=== PATIENT | male | born 1990 | race Caucasian/White ===

== ENCOUNTER 2022-01-25 19:07 | Emergency (ER) | payer BC ==
[2022-01-25 20:55] VITALS: BP 127/85; PULSE 81; RESP 18; TEMP 98
--- NOTE | 2022-01-25 21:37 | US ---
EXAMINATION TYPE: US venous doppler duplex LE RT DATE OF EXAM: 01/25/2022 8:57 PM COMPARISON: NONE CLINICAL HISTORY: right ankle pain. history of DVT. Hx of DVT right lower extremity May 2021; pat ient denies being on current thinners. Patient has right ankle pain/swelling. SIDE PERFORMED: Right TECHNIQUE: The lower extremity deep venous system is examined utilizing real time linear array sonog oliver with graded compression, doppler sonography and color-flow sonography. VESSELS IMAGED: Common Femoral Vein Deep Femoral Vein Greater Saphenous Vein * Femoral Vein Popliteal Vein Small Saphenous Vein * Proximal Calf Veins (* superficial vessels) PTV Right Leg: Negative for DVT IMPRESSION: No evidence of deep vein thrombosis in the right leg.
--- NOTE | 2022-01-25 23:05 | ED ---
Extremity Problem HPI - General Chief complaint: Extremity Problem,Nontraumatic Stated complaint: Rt Ankle Pain,Poss.DVT, PCP sent pt in Time Seen by Provider: 01/25/22 22:52 Source: patient, RN notes reviewed Mode of arrival: ambulatory Limitations: no limitations - History of Present Illness Initial comments: This is a pleasant 31-year-old male who presents emergency department complaining of swelling to his right ankle. He states he's had increased swelling and increased pain with movement and ambulation going on for several weeks. Patient denying any injury. No increased activity. Patient denies any distal paresthesias. No proximal pain. Patient had a trimalleolar fracture which required surgery out of [facility] at the end of last year. Patient subsequently developed a blood clot and now has noticed swelling around the ankle again. There is been no fever or chills. No erythema. No trauma. Patient has Doppler done in triage which was negative for DVT. No headache, no fever or chills, no changes in vision or hearing, no sore throat or difficulty with speech, no neck pain, no chest pain or shortness of breath, no abdominal pain, no nausea or vomiting, no changes in urination or bowel movements, no numbness or tingling, no skin rashes or lesions. - Related Data Previous Rx's Medication Instructions Recorded Naproxen [Naprosyn] 500 mg PO BID PRN #24 tablet 01/25/22 Allergies Allergy/AdvReac Type Severity Reaction Status Date / Time No Known Allergies Allergy Verified 01/25/22 20:55 Review of Systems ROS Statement: Those systems with pertinent positive or pertinent negative responses have been documented in the HPI. ROS Other: All systems not noted in ROS Statement are negative. Past Medical History Past Medical History: No Reported History, Deep Vein Thrombosis (DVT) Additional Past Medical History / Comment(s): Right ankle trimalleolar fracture History of Any Multi-Drug Resistant Organisms: None Reported Past Surgical History: Orthopedic Surgery Additional Past Surgical History / Comment(s): right leg surgery from injury, left ankle surgery Past Psychological History: No Psychological Hx Reported Smoking Status: Never smoker Past Alcohol Use History: None Reported Past Drug Use History: None Reported General Exam - General Exam Comments Initial Comments: no distress. Vital signs stable, patient afebrile Limitations: no limitations General appearance: alert, in no apparent distress Head exam: Present: atraumatic, normocephalic, normal inspection Eye exam: Present: normal appearance, PERRL, EOMI. Absent: scleral icterus, conjunctival injection, periorbital swelling ENT exam: Present: normal exam, mucous membranes moist Neck exam: Present: normal inspection, full ROM. Absent: tenderness, meningismus, lymphadenopathy Respiratory exam: Present: normal lung sounds bilaterally. Absent: respiratory distress, wheezes, rales, rhonchi, stridor Cardiovascular Exam: Present: regular rate, normal rhythm, normal heart sounds. Absent: systolic murmur, diastolic murmur, rubs, gallop, clicks GI/Abdominal exam: Present: soft. Absent: tenderness, rigid Extremities exam: Present: full ROM, normal capillary refill. Absent: tenderne ss, pedal edema, calf tenderness Right Knee exam: Present: normal inspection, full ROM. Absent: tenderness, swelling, abrasion, laceration, ecchymosis, deformity, crepitus, dislocation, erythema, effusion Lower Leg exam: Present: normal inspection. Absent: tenderness, swelling, abrasion, laceration, ecchymosis, deformity, crepitus, dislocation, erythema, palpable cord, Homans' sign Ankle exam: Present: full ROM, tenderness (Minimal), swelling. Absent: normal inspection, abrasion, laceration, ecchymosis, deformity, erythema Foot/Toe exam: Present: normal inspection, full ROM. Absent: tenderness, swelling, abrasion, laceration, ecchymosis, crepitus, dislocation, erythema, amputation, calcaneal tenderness Neurovascular tendon exam: Present: no vascular compromise. Absent: pulse deficit, abnormal cap refill, motor deficit, sensory deficit, tendon deficit, e xtremity cold to touch, pallor, abnormal 2-point discrimination, decreased fine/light touch, foot drop, peroneal nerve deficit Gait: antalgic (Minimal antalgia) Back exam: Present: normal inspection Neurological exam: Present: alert, oriented X3, CN II-XII intact Psychiatric exam: Present: normal affect, normal mood Skin exam: Present: warm, dry, intact, normal color. Absent: rash Course Vital Signs 01/25/22 20:51 Temperature 98 F Pulse Rate 81 Respiratory 18 Rate Blood Pressure 127/85 O2 Sat by Pulse 100 Oximetry Medical Decision Making - Medical Decision Making Patient presents with some chronic pain to his right ankle with some swelling. No evidence of infectious process. No calor. No erythema. Negative Homans sig n. Negative venous Doppler. We'll have the patient follow-up with his regular physician. Pedal pulses were 2+ out of 4. No evidence of infectious or vascular insult. Distal sensation intact. Patient was told to return to the ER for any signs or symptoms worsen. Told to return immediately if any other problems arise. All questions answered. Treatment plan discussed. Patient in agreement Every effort has been made to ensure accuracy of this dictation. However, due to the limitations of electronic medical records and dictation devices, errors in charting still occur. [employer] Dr. Rivers - Radiology Data Radiology results: report reviewed, image reviewed Disposition Clinical Impression: Swelling of right ankle joint, Chronic pain of right ankle Disposition: HOME SELF-CARE Condition: Good Instructions (If sedation given, give patient instructions): Arthralgia (ED) Additional Instructions: Take the anti-inflammatory medication as directed. Elevate your leg whenever possible. Follow-up with the orthopedic physician as soon as possible as discussed. If the swelling is still present after one week, have the venous Doppler reach repeated. Return to the ER immediately if any symptoms worsen, new symptoms arise, or any other problems develop. Is patient prescribed a controlled substance at d/c from ED?: No Referrals: Barron Collazo MD [Primary Care Provider] - 1-2 days Time of Disposition: 23:05
== END 2022-01-25 23:10 | disposition home or self-care (01) ==
LOC: EC 19:07
DX: G89.29 Other chronic pain (principal); M25.571 Pain in right ankle and joints of right foot; M79.89 Other specified soft tissue disorders
CPT/HCPCS: 99283